=== PATIENT | female | born 1960 | race Caucasian/White ===

== ENCOUNTER → 2023-11-15 | Outpatient (CLI) | payer SELFPAY ==
[2023-11-18 16:09] LABS: G6PD Quant Test 282 (127-427); Red Blood Cell Count Test/G6PD 4.44 x10E6/uL (3.77-5.28)
== END | disposition home or self-care (01) ==
LOC: LABSPEC 15:57
PROVIDERS: Referring Provider Nurse Practitioner Family; Visit Provider Nurse Practitioner Family
DX: R53.82 Chronic fatigue, unspecified (principal); M79.10 Myalgia, unspecified site; A69.20 Lyme disease, unspecified
CPT/HCPCS: 82955